=== PATIENT | male | born 2000 | race Caucasian/White ===

== ENCOUNTER 2021-05-07 09:19 | Emergency (ER) | payer OTHER ==
[2021-05-07 10:05] LABS: BASOPHILS % (AUTO) 0.2 %; EOSINOPHILS # (AUTO) 0.2 10^3/uL (0.0-0.7); EOSINOPHILS % (AUTO) 1.5 %; HCT - HEMATOCRIT 43.7 % (42.0-52.0); HGB - HEMOGLOBIN 15.2 g/dL (14.0-18.0); LYMPHOCYTES # (AUTO) 1.7 10^3/uL (1.5-3.5); LYMPHOCYTES % (AUTO) 13.8 %; MEAN CORPUSCULAR HEMOGLOBIN 29.1 pg (27.0-31.0); MEAN CORPUSCULAR HGB CONC 34.8 g/dL (32.0-36.0); MEAN CORPUSCULAR VOLUME 83.7 fL (80.0-94.0); MEAN PLATELET VOLUME 10.2 fL (7.4-11.4); MONOCYTES # (AUTO) 0.6 10^3/uL (0.0-1.0); MONOCYTES % (AUTO) 5.2 %; NEUTROPHILS # (AUTO) 9.7 10^3/uL (1.5-6.6); PLT - PLATELET COUNT 231 10^3/uL (130-450); RED BLOOD COUNT 5.22 10^6/uL (4.70-6.10); WHITE BLOOD COUNT 12.3 x10^3/uL (4.8-10.8)
[2021-05-07 10:33] LABS: ALBUMIN 4.8 g/dL (3.2-5.5); ALBUMIN/GLOBULIN RATIO 1.6 (1.0-2.2); BILIRUBIN,TOTAL 0.6 mg/dL (0.2-1.0); CALCIUM 9.5 mg/dL (8.5-10.3); TOTAL PROTEIN 7.8 g/dL (6.7-8.2)
[2021-05-07] MEDS ORDERED: MAG HYDROX/AL HYDROX/SIMETH 30 ML UDC PO STA (12:21)
[2021-05-07] MEDS ORDERED: LIDOCAINE VISCOUS 2% 15 ML UDC MM STA (12:21)
--- NOTE | 2021-05-07 12:23 | ED Physician Documentation ---
PD HPI ABD PAIN - Stated complaint Stated Complaint: ABD PX - Chief complaint Chief Complaint: Abd Pain - History obtained from History obtained from: Patient - Additional information Additional information: 21-year-old gentleman, active [employer] [place] presents with a recurrence of chronic intermittent abdominal pain that he has had since age 11. No clear diagnosis. He has had a few bad episodes, and is generally symptom-free between episodes. In the last 6 months this is his third episode. No clear diagnosis, but gallstones/gastritis/ulcer were all in the differential. No upper endoscopy in the past. Presents with burning severe stabbing upper abdominal pain starting this morning. He took pantoprazole without immediate relief. He is nauseous. No changes in his bowel movements. No history of abdominal surgeries except for some cyst removed from the colon, sounds like that was done via colonoscope. He does use caffeine heavily and nicotine. Review of Systems Ten Systems: 10 systems reviewed and negative Constitutional: reports: Sweats. denies: Fever, Chills Cardiac: denies: Chest pain / pressure, Palpitations Respiratory: denies: Dyspnea, Cough PD PAST MEDICAL HISTORY - Present Medications Home Medications: Ambulatory Orders Medication Instructions Recorded Confirmed Pantoprazole [Protonix] 40 mg PO DAILY 05/07/21 05/07/21 - Allergies Allergies/Adverse Reactions: Allergies Allergy/AdvReac Type Severity Reaction Status Date / Time No Known Drug Allergies Allergy Verified 05/07/21 09:28 PD ED PE NORMAL - Vitals Vital signs reviewed: Yes - General General: Alert and oriented X 3, No acute distress - HEENT HEENT: PERRL, EOMI - Neck Neck: Supple, no meningeal sign, No bony TTP - Cardiac Cardiac: RRR, No murmur - Respiratory Respiratory: No respiratory distress, Clear bilaterally - Abdomen Abdomen: Normal bowel sounds, Soft, Other (Mild diffuse tenderness especially upper abdomen without surgical signs) - Back Back: No CVA TTP, No spinal TTP - Derm Derm: Normal color, Warm and dry - Extremities Extremities: No edema, No calf tenderness / cord - Neuro Neuro: Alert and oriented X 3, Normal speech Results - Vitals Vitals: Vital Signs - 24 hr 05/07/21 05/07/21 09:24 12:52 Temperature 36.4 C L Heart Rate 88 63 Respiratory 18 16 Rate Blood Pressure 112/90 H 144/57 H O2 Saturation 100 98 Oxygen O2 Source Room air - EKG (time done) 0931 Rate: Rate (enter#) (81) Rhythm: NSR [place]: Normal Intervals: Normal IA QRS: Normal Ischemia: Normal ST segments - Labs Labs: Laboratory Tests 05/07/21 05/07/21 09:59 09:59 WBC 12.3 H RBC 5.22 Hgb 15.2 Hct 43.7 MCV 83.7 MCH 29.1 MCHC 34.8 RDW 13.0 Plt Count 231 MPV 10.2 Neut # (Auto) 9.7 H Lymph # (Auto) 1.7 [place] # (Auto) 0.6 Eos # (Auto) 0.2 Baso # (Auto) 0.0 Absolute Nucleated RBC 0.00 Nucleated RBC % 0.0 Sodium 134 L Potassium 4.0 Chloride 98 L Carbon Dioxide 25 Anion Gap 11.0 BUN 16 Creatinine 1.0 Estimated GFR (MDRD) 93 Glucose 120 H Calcium 9.5 Total Bilirubin 0.6 AST 20 ALT 24 Alkaline Phosphatase 97 Total Protein 7.8 Albumin 4.8 Globulin 3.0 Albumin/Globulin Ratio 1.6 Lipase 34 PD MEDICAL DECISION MAKING - ED course ED course: 21-year-old gentleman with upper abdominal pain, recurrent in the setting of heavy caffeine and some nicotine use. Most consistent with gastritis. He was much better after the administration of a GI cocktail. Labs are notable for mildly high white count and a CT showing a "borderline" appendix. Appendicitis does not fit the clinical scenario and on reevaluation he was feeling much better. We discussed the findings and I offered surgical consultation versus very close return precautions and he opted for the latter and understands the need to return this evening in 8 to 12 hours if not completely better or anytime if worse. Departure - Departure Disposition: 01 Home, Self Care Clinical Impression: Abdominal pain Qualifiers: Abdominal location: epigastric Qualified Code(s): R10.13 - Epigastric pain Condition: Good Record reviewed to determine appropriate education?: Yes Instructions: ED Abdominal Pain Appendx Poss Comments: As discussed, your CAT scan showed a borderline appendix., After we discussed you have decided to go home and see how this develops. It is imperative that you return in 8 to 12 hours if not completely better for reevaluation. Anytime if worse., That said the overall clinical syndrome is more consistent with ulcers or gastritis. [place] for [place]oscopy even if this flare does completely go away. Continue the pantoprazole.
[2021-05-07] MEDS ORDERED: IOVERSOL 320 100 ML VIAL IVP ONE ×2 (13:32→15:10)
--- NOTE | 2021-05-07 13:58 | CT Report ---
PROCEDURE: Abdomen/Pelvis W INDICATIONS: IV only, upper abd pain CONTRAST: IV CONTRAST: Optiray 320 ml: 100 PO CONTRAST: *NO PO CONTRAST TECHNIQUE: After the administration of IV contrast, 5 mm thick sections acquired from the diaphragms to the symp hysis. 5 mm thick coronal and sagittal reformats were acquired. For radiation dose reduction, the f ollowing was used: automated exposure control, adjustment of mA and/or kV according to patient size. COMPARISON: None. FINDINGS: Image quality: Excellent. ABDOMEN: Lung bases: Lung bases are clear. Heart size is normal. Solid organs: Liver and spleen are normal in size and enhancement. Gallbladder is normal without pe richolecystic inflammation. Biliary system is non dilated. Pancreas enhances normally. No adrenal nodules. Kidneys demonstrate normal size and enhancement, without hydronephrosis. Peritoneum and bowel: There is trace high-density material at the appendiceal orifice. The mid appen virid[place] is enlarged in diameter with thickened fraire measuring up to 1.2 cm. The mid to distal portion is fluid-filled. There are no periappendiceal inflammatory changes. There are nonspecific mild inflamma tory changes in the right upper quadrant omental fat. Stomach and bowel loops are partially decompres sed and appear otherwise normal. Nodes and vessels: No retroperitoneal or mesenteric adenopathy by size criteria. Aorta and inferior vena cava are normal in size. Miscellaneous: No ventral hernias. PELVIS: Genitourinary: Bladder wall thickness is normal. Miscellaneous: No inguinal hernias or adenopathy. Bones: No suspicious bony lesions. Unilateral left-sided L5 pars defect. No vertebral body compress ion fractures. IMPRESSION: 1. Enlarged appendix without convincing periappendiceal inflammation or secondary signs of acute appe ndicitis. This may be reactive. Close follow-up and clinical correlation is recommended. 2. No other abnormalities. Reviewed by: Brigitte Lanier MD on 05/07/2021 1:57 PM PDT Approved by: Brigitte Lanier MD on 05/07/2021 1:57 PM PDT Station ID: [id number]
[2021-05-07 14:17] VITALS: BP 121/59
== END 2021-05-07 14:18 | disposition home or self-care (01) ==
LOC: ED 09:19
DX: R10.13 Epigastric pain (principal)
CPT/HCPCS: 36415; 74177; 80053; 83690; 85025; 93005; 99282; 99284; A9270; Q9967

== ENCOUNTER 2022-01-21 12:04 | Emergency (ER) | payer OTHER ==
[2022-01-21 12:12] VITALS: BP 118/84
[2022-01-21 12:23] LABS: BASOPHILS % (AUTO) 0.2 %; EOSINOPHILS # (AUTO) 0.1 10^3/uL (0.0-0.7); EOSINOPHILS % (AUTO) 0.9 %; HCT - HEMATOCRIT 44.7 % (42.0-52.0); HGB - HEMOGLOBIN 15.8 g/dL (14.0-18.0); LYMPHOCYTES # (AUTO) 1.9 10^3/uL (1.5-3.5); LYMPHOCYTES % (AUTO) 14.1 %; MEAN CORPUSCULAR HEMOGLOBIN 29.9 pg (27.0-31.0); MEAN CORPUSCULAR HGB CONC 35.3 g/dL (32.0-36.0); MEAN CORPUSCULAR VOLUME 84.7 fL (80.0-94.0); MEAN PLATELET VOLUME 10.5 fL (7.4-11.4); MONOCYTES # (AUTO) 0.7 10^3/uL (0.0-1.0); MONOCYTES % (AUTO) 5.4 %; NEUTROPHILS # (AUTO) 10.6 10^3/uL (1.5-6.6); PLT - PLATELET COUNT 262 10^3/uL (130-450); RED BLOOD COUNT 5.28 10^6/uL (4.70-6.10); RED CELL DISTRIBUTION WIDTH 13.3 % (12.0-15.0); WHITE BLOOD COUNT 13.4 x10^3/uL (4.8-10.8)
[2022-01-21 12:37] LABS: ALBUMIN 5.2 g/dL (3.2-5.5); ALBUMIN/GLOBULIN RATIO 1.8 (1.0-2.2); BILIRUBIN,TOTAL 1.1 mg/dL (0.2-1.0); CALCIUM 10.2 mg/dL (8.5-10.3); TOTAL PROTEIN 8.1 g/dL (6.7-8.2)
== END 2022-01-21 12:48 | disposition left against medical advice (07) ==
LOC: ED 12:04
DX: Z53.29 Procedure and treatment not carried out because of patient's decision for other reasons (principal)
CPT/HCPCS: 36415; 80053; 83690; 85025